=== PATIENT | female | born 1965 | race Caucasian/White ===

== ENCOUNTER → 2019-06-01 | Outpatient (CLI) | payer OTHER ==
[~2019-06-01] MED LIST: AMBIEN 10 MG TA10 MG PO; AMLODIPINE BESY10 MG PO; APAP500 PO; ASPIRIN325 PO; CALCIUM 500+D1 EAC2 PO; CARDIZEM CD180 MG PO; CELEBREX 200 M200 MG PO; FLEXERIL PO; FOLIC ACID20 MG PO; HYDROCHLOROTHIA25 M2 PO; HYDROCODON-ACE1 EACH PO; HYDROXYCHLOROQ200 M1 PO; IBUPROFEN 200200 M1 PO; IBUPROFEN 800800 M1 PO; LEVOTHROID150 MC1 PO; LORTAB 10 MG-3473 ML; MOBIC15 MG PO; MOM; MULTIVITAMINS PO; MUPIROCIN1 GM NASAL; PERCOCET 5-3251 EACH PO; PRADAXA150 MG PO; PRILOSEC 20 MG20 MG PO; SYNTHROID112 MCG PO; TRAMADOL 50 MG50 MG PO; VITAMIN B-12500 MCG PO; VITAMIN D35000 UNI1 PO; VITAMIN D400 UNI1 PO; ZANAFLEX4 MG PO; ZOFRAN4 MG PO; [UNRECOGNIZED DRUG - OTHER] PO
--- NOTE | 2019-06-01 10:03 | 2DMMODE ---
[facility] [address] [place] [address] 2 D/M-MODE ECHOCARDIOGRAM Name: SEBAS BROWN Room #: REG [facility]#: [id number] ������������� Admission: 06/01/19 ������������� Attend Phys: Tim Rosado Discharge: ��� ������������� ��� Date of : 67 Date of Service: 06/01/19 1003 �� Report #: [id number] �������� ��������������������������������������������[id number] THIS REPORT FOR: //name// APPROVED REPORT Study performed: 06/01/2019 09:03:38 EXAM: Comprehensive 2D, Doppler, and color-flow Echocardiogram Patient Location: Out-Patient Room #: Echo Lab 2 Status: routine BSA: 2.21 HR: 70 bpm BP: 140/90 mmHg Rhythm: NSR Other Information Study Quality: Good Indications Atrial Fibrillation 2D Dimensions RVDd: 44.93 mm IVSd: 9.84 (7-11mm) LVOT Diam: 20.46 (18-24mm) LVDd: 50.52 mm PWd: 10.73 (7-11mm) Ascending Ao: 31.72 (22-36mm) LVDs: 34.27 (25-40mm) Aortic Root: 35.08 mm IVC: 17.00 mm Volumes Left Atrial Volume (Systole) Single Plane 4CH: 45.43 mL Single Plane 2CH: 68.84 mL LA ESV Index: 33.00 mL/m2 Aortic Valve AoV Peak Estuardo.: 1.28 m/s AO Peak Gr.: 6.59 mmHg LVOT Max P.88 mmHg LVOT Max V: 1.10 m/s CIPRIANO Vmax: 2.83 cm2 Mitral Valve E/A Ratio: 1.0 MV Decel. Time: 248.46 ms MV E Max Estuardo.: 0.71 m/s [facility] [address] [place] [address] 2 D/M-MODE ECHOCARDIOGRAM Name: SEBAS BROWN [facility] [id number] ������������� Admission: 06/01/19 ������������� Attend Phys: Tim Rosado Discharge: ��� ������������� ��� Date of : 67 Date of Service: 06/01/19 1003 �� Report #: [id number] �������� ��������������������������������������������[id number] MV A Estuardo.: 0.68 m/s MV PHT: 72.05 ms IVRT: 73.82 ms Pulmonary Valve PV Peak Estuardo.: 0.95 m/s PV Peak Gr.: 3.59 mmHg Pulmonary Vein P Vein S: 0.55 m/s P Vein A: 0.29 m/s P Vein D: 0.44 m/s P Vein A Dur.: 96.9 msec P Vein S/D Ratio: 1.25 Tricuspid Valve TR Peak Estuardo.: 2.13 m/s TR Peak Gr.: 18.15 mmHg PA Pressure: 23.00 mmHg Left Ventricle The left ventricle is normal size. There is normal LV segmental wall motion. There is normal left ventricular wall thickness. The left ventricular systolic function is normal. The left ventricular ejection fraction is within the normal range. LVEF is 55-60%. Moderate diastolic dysfunction is present (pseudonormal filling). Right Ventricle Right ventricle is dilated. The right ventricular systolic function is normal. Atria The left atrium size is normal. Right atrium is dilated. Aortic Valve The aortic valve is normal in structure. No aortic regurgitation is present. There is no aortic valvular stenosis. Mitral Valve The mitral valve is normal in structure. Mild to moderate mitral regurgitation. No evidence of mitral valve stenosis. Tricuspid Valve The tricuspid valve is normal in structure. Mild tricuspid regurgitation. Estimated PAP is 23mmHg. Pulmonic Valve The pulmonary valve is normal in structure. Mild pulmonic [address] [address] 2 D/M-MODE ECHOCARDIOGRAM Name: KEVINJOCELYNSEBAS Pineda Room #: REG [facility] [place]#: [id number] ������������� Admission: 06/01/19 ������������� Attend Phys: [facility] Discharge: ��� ������������� ��� Date of : 67 Date of Service: 06/01/19 1003 �� Report #: [id number] �������� ��������������������������������������������[id number] regurgitation. Great Vessels The aortic root is normal in size. The ascending aorta is normal in size. IVC is normal in size and collapses >50% with inspiration. Pericardium There is no pericardial effusion. <Conclusion> The left ventricle is normal size. LVEF is 55-60%. Right ventricle is dilated. The right ventricular systolic function is normal. Right atrium is dilated. The aortic valve is normal in structure. The mitral valve is normal in structure. Mild to moderate mitral regurgitation. The tricuspid valve is normal in structure. Mild tricuspid regurgitation. Estimated PAP is 23mmHg. The pulmonary valve is normal in structure. Mild pulmonic regurgitation. There is no pericardial effusion. ��������������������������������������������� <ELECTRONICALLY SIGNED> ���������������������������������������� By: Diego Herrera MD ��������������������������������������������� 06/01/19 1003 1003 1003 Diego Herrera MD /INF
== END ==
LOC: CV 08:50
DX: I08.8 Other rheumatic multiple valve diseases (principal); I48.91 Unspecified atrial fibrillation; Z88.0 Allergy status to penicillin; Z88.2 Allergy status to sulfonamides; Z88.8 Allergy status to other drugs, medicaments and biological substances

== ENCOUNTER → 2019-11-30 | Outpatient (CLI) | payer OTHER | LOC: RAD 11:01 | DX: Z12.31 Encounter for screening mammogram for malignant neoplasm of breast (principal) ==

== ENCOUNTER → 2020-11-28 | Outpatient (CLI) | payer OTHER | LOC: RAD 09:44 | PROVIDERS: ATTEND Obstetrics & Gynecology | DX: Z12.31 Encounter for screening mammogram for malignant neoplasm of breast (principal) ==

== ENCOUNTER → 2021-05-17 | Outpatient (CLI) | payer OTHER | LOC: SJCVCIMAG 10:13 | PROVIDERS: ATTEND Internal Medicine Cardiovascular Disease | DX: I08.1 Rheumatic disorders of both mitral and tricuspid valves (principal); I48.91 Unspecified atrial fibrillation; I10 Essential (primary) hypertension ==